=== PATIENT | female | born 1960 | race Caucasian/White ===

== ENCOUNTER → 2017-03-05 | Outpatient (CLI) | payer OTHER ==
[~2017-03-05] MED LIST: ADVAIR 10028 PUFF/IN INH; CALCIUM CARBON600 MG PO; HYDROCHLOROTHIA25 M1 PO; MAG-OX 400MG T400 MG PO; SINGULAIR10 MG PO; ZYRTEC 10MG TAB10 MG PO
--- NOTE | 2017-03-12 15:51 | RADIOLOGY REPORT PS360 ---
DIG MAMM-SCREEN [facility] W/CAD CAD Screening COMPARISON: Digital mammograms 11/21/2011 INDICATION: There is no personal or family history of breast cancer. There is been previous biopsy left breast for benign disease. TECHNIQUE: Standard CC and MLO images were obtained. R2 CAD reviewed. FINDINGS: Moderate diffuse fiber glandular densities are seen in both breast primarily upper outer quadrants although there has been some fatty replacement of the glandular densities since the previous exam. Again noted is a biopsy clip just deep to the nipple the left breast. There are few benign-appearing micro there is no new or suspicious lesion in either breast and no suspicious microcalcifications. Calcifications in each breast. IMPRESSION: Fibrofatty parenchyma with no suspicious lesion seen recommend yearly follow-up BI-RADS CATEGORY: 2_Benign RECOMMENDED FOLLOWUP: 12M 12 MONTH FOLLOW-UP (A letter has been sent to the patient regarding results of the study.)
== END ==
LOC: RAD 02-24 16:00
DX: Z12.31 Encounter for screening mammogram for malignant neoplasm of breast (principal)
CPT/HCPCS: G0202